=== PATIENT | male | born 1970 | race Caucasian/White ===

== ENCOUNTER 2017-07-11 18:50 | Emergency (ER) | payer OTHER ==
[2017-07-11] MEDS ORDERED: Sodium Chloride 0.9% 1,000 ML IV ONE (19:24)
[2017-07-11] MEDS ORDERED: Ondansetron 4 MG/2 ML SDV IVPUSH ONE (19:24)
[2017-07-11] MEDS ORDERED: Metoclopramide 10 MG/2 ML SDV IV ONE (19:24)
[2017-07-11] MEDS ORDERED: diphenhydrAMINE 50 MG/ML SDV IVPUSH ONE (19:26)
--- NOTE | 2017-07-11 19:31 | EDM.PDOC ---
ED HPI GENERAL MEDICAL PROBLEM - General Chief Complaint: Headache Stated Complaint: MIGRAINE Time Seen by Provider: 07/11/17 19:10 Source of Information: Reports: Patient History Limitations: Reports: No Limitations - History of Present Illness INITIAL COMMENTS - FREE TEXT/NARRATIVE: HISTORY AND PHYSICAL: History of present illness: [Patient comes to the emergency room complaining of a migraine headache that began last evening. He does have a history of migraine headaches with his most recent being 6-8 months ago while he was at home in [place]. The previous migraine headache was the first one he's ever had. He was able to see his primary care provider at that time who documented the headache. He reports an intolerance to aspirin and ibuprofen, and states that in the past he had to get morphine to relieve his symptoms. He states that today's headache feels just like his previous headache and is not any worse in intensity. He denies fever and chills. Has had no chest pain shortness of breath or difficulty breathing. No blurred vision or double vision. No eye pain. No earaches, runny nose or sore throat. No abdominal pain or vomiting. He has had some mild nausea on and off throughout today. He was treated one week ago for an upper respiratory infection with a Zithromax Z-Gordy which he completed 3 days ago. States that he was feeling well over the past several days since completing that medication. Rates his pain as 6 out of 10. He has not taken any medications for his symptoms.] Review of systems: As per history of present illness and below otherwise all systems reviewed and negative. Past medical history: As per history of present illness and as reviewed below otherwise noncontributory. Surgical history: As per history of present illness and as reviewed below otherwise noncontributory. Social history: No reported history of drug or alcohol abuse. Family history: As per history of present illness and as reviewed below otherwise noncontributory. Physical exam: HEENT: Atraumatic, normocephalic. PERRLA. EOMI. Oral mucous membranes are pink and moist. Ecchymosis surrounding left orbit from prior trauma. Lungs: Clear to auscultation, breath sounds equal bilaterally. Heart: S1S2, regular rate and rhythm. Pelvis: Stable nontender. Genitourinary: Deferred. Rectal: Deferred. Extremities: Atraumatic in appearance. Neurovascular unremarkable. Neuro: Awake, alert, oriented. Motor and sensory unremarkable throughout. Exam nonfocal. Therapeutics: [1 L normal saline, Benadryl 50 mg IV, Reglan 10 mg IV, Zofran 4 mg IV, morphine 2 mg IV] Impression: [Headache] Plan: [Patient admits to slight improvement following Benadryl, Reglan and Zofran. Now rates his headache as 5 out of 10. Morphine 2 mg given IV. Patient discharged to home. ] Definitive disposition and diagnosis as appropriate pending reevaluation and review of above. Headache Pain Score (Numeric/FACES): 7 - Related Data Allergies Allergy/AdvReac Type Severity Reaction Status Date / Time aspirin Allergy Anaphylactic Verified 07/11/17 19:07 Shock ibuprofen Allergy Anaphylactic Verified 07/11/17 19:07 Shock Home Meds: Home Meds Albuterol [IJD: Albuterol HFA] 2 puff INH DAILY PRN 07/11/17 [History] Fluticasone/Salmeterol [Advair Hfa 230-21 Mcg Inhaler] 1 puff INH DAILY [History] Omeprazole 20 mg PO DAILY 07/11/17 [History] Past Medical History - Past Health History Medical/Surgical History: Denies Medical/Surgical History HEENT History: Reports: None Respiratory History: Reports: Asthma Gastrointestinal History: Reports: GERD Neurological History: Reports: Migraines - Infectious Disease History Infectious Disease History: Reports: Chicken Pox - Past Surgical History HEENT Surgical History: Reports: Polypectomy GI Surgical History: Reports: None Neurological Surgical History: Reports: None Social & Family History - Family History Family Medical History: Noncontributory - Tobacco Use Smoking Status *Q: Former Smoker Used Tobacco, but Quit: Yes Month Tobacco Last Used: "3years ago" - Caffeine Use Caffeine Use: Reports: Coffee, Energy Drinks, Soda - Recreational Drug Use Recreational Drug Use: No ED ROS GENERAL - Review of Systems Review Of Systems: ROS reveals no pertinent complaints other than HPI. - Physical Exam Exam: See Below Course - Vital Signs Last Recorded V/S: Last Vital Signs Temp 97.9 F 07/11/17 19:04 Pulse 70 07/11/17 19:04 Resp 18 07/11/17 19:04 BP 133/84 07/11/17 19:04 Pulse Ox 96 07/11/17 19:04 - Orders/Labs/Meds Orders: Active Orders 24 hr Category Date Time Status HEPATITIS B SURFACE ANTIGEN [REF] Stat Lab 07/11/17 21:35 Received HEPATITIS C AB [REF] Stat Lab 07/11/17 21:35 Received HIV12 AG/AB 4TH GEN W/REFLEX [CHEM] Stat Lab 07/11/17 21:35 Received Meds: Medications Discontinued Medications Generic Name Dose Route Start Last Admin Trade Name Efraínq PRN Reason Stop Dose Admin Diphenhydramine HCl 50 mg 07/11/17 19:26 07/11/17 20:02 Benadryl IVPUSH 07/11/17 19:27 50 mg ONETIME ONE Administration Sodium Chloride 1,000 mls @ 999 mls/hr 07/11/17 19:24 07/11/17 20:01 Normal Saline IV 07/11/17 20:24 999 mls/hr STAT ONE Administration Metoclopramide HCl 10 mg 07/11/17 19:24 07/11/17 20:02 Reglan IV 07/11/17 19:25 10 mg ONETIME ONE Administration Morphine Sulfate 2 mg 07/11/17 21:51 07/11/17 21:58 Morphine IVPUSH 07/11/17 21:52 2 mg ONETIME ONE Administration Ondansetron HCl 4 mg 07/11/17 19:24 07/11/17 20:02 Zofran IVPUSH 07/11/17 19:25 4 mg ONETIME ONE Administration Departure - Departure Time of Disposition: 22:15 Disposition: Home, Self-Care 01 Condition: Good Clinical Impression: Headache - Discharge Information Referrals: PCP,None [Primary Care Provider] - Forms: ED Department Discharge Additional Instructions: The following information is given to patients seen in the emergency department who are being discharged to home. This information is to outline your options for follow-up care. We provide all patients seen in our emergency department with a follow-up referral. The need for follow-up, as well as the timing and circumstances, are variable depending upon the specifics of your emergency department visit. If you don't have a primary care physician on staff, we will provide you with a referral. We always advise you to contact your personal physician following an emergency department visit to inform them of the circumstance of the visit and for follow-up with them and/or the need for any referrals to a consulting specialist. The emergency department will also refer you to a specialist when appropriate. This referral assures that you have the opportunity for follow-up care with a specialist. All of these measure are taken in an effort to provide you with optimal care, which includes your follow-up. Under all circumstances we always encourage you to contact your private physician who remains a resource for coordinating your care. When calling for follow-up care, please make the office aware that this follow-up is from your recent emergency room visit. If for any reason you are refused follow-up, please contact the [facility] emergency department at and asked to speak to the emergency department charge nurse. [facility] [address] [place] [id number] Establish care with a local primary care provider and follow-up there in the next 2-3 days. Return to ER as needed as discussed. - My Orders Last 24 Hours: My Active Orders 07/11/17 21:35 HEPATITIS B SURFACE ANTIGEN [REF] Stat HEPATITIS C AB [REF] Stat HIV12 AG/AB 4TH GEN W/REFLEX [CHEM] Stat - Assessment/Plan Last 24 Hours: My Active Orders 07/11/17 21:35 HEPATITIS B SURFACE ANTIGEN [REF] Stat HEPATITIS C AB [REF] Stat HIV12 AG/AB 4TH GEN W/REFLEX [CHEM] Stat
[2017-07-11] MEDS ORDERED: Morphine 2 MG/ML Syringe IVPUSH ONE (21:51)
== END 2017-07-11 22:30 | disposition home or self-care (01) ==
LOC: MW.ED 18:50
DX: R51 Headache (principal); Z88.6 Allergy status to analgesic agent; Z87.891 Personal history of nicotine dependence
CPT/HCPCS: 86803; 87340; 87389; 96361; 96374; 96375; 99284; J1200; J2270; J2405; J2765; J7040; 36415

== ENCOUNTER 2019-07-07 08:09 | Emergency (ER) | payer OTHER ==
[2019-07-07] MEDS ORDERED: Sodium Chloride 0.9% 500 ML IV ONE (08:23)
[2019-07-07] MEDS ORDERED: Ondansetron 4 MG/2 ML SDV IVPUSH ONE (08:23)
[2019-07-07] MEDS ORDERED: diphenhydrAMINE 50 MG/ML SDV IVPUSH ONE (08:24)
--- NOTE | 2019-07-07 08:52 | EDM.PDOC ---
ED HPI GENERAL MEDICAL PROBLEM - General Chief Complaint: Headache Stated Complaint: SEVERE MIGRAINE Time Seen by Provider: 07/07/19 08:45 - History of Present Illness INITIAL COMMENTS - FREE TEXT/NARRATIVE: HISTORY AND PHYSICAL: History of present illness: []48-year-old male presenting today with 3 days of worsening migraine; mention having multiple episodes in the past 4 years 1 every year; last episode 2 years ago. States over the course of 3 days he is having increasing pressure in his forehead and the right-sided stays with increasing lacrimation of his right eye. Denies any fevers, chills, body aches, chest pain, shortness of breath. Denies any preceding symptoms including changes in vision, floaters, and/or aura. Frank endorse sensitivity to light predominantly in the right eye greater than left eye Does mention having nausea without any vomiting. Denies any other focal deficits as been using [id number] Tylenol with partial pain relief; took 4 Tylenol this morning prior to arriving to the ED. Review of systems: As per history of present illness and below otherwise all systems reviewed and negative. Past medical history: As per history of present illness and as reviewed below otherwise noncontributory. Surgical history: As per history of present illness and as reviewed below otherwise noncontributory. Social history: No reported history of drug or alcohol abuse. Family history: As per history of present illness and as reviewed below otherwise noncontributory. Physical exam: HEENT: Atraumatic, normocephalic, pupils reactive, negative for conjunctival pallor or scleral icterus, mucous membranes moist, throat clear, neck supple, nontender, trachea midline. Lungs: Clear to auscultation, breath sounds equal bilaterally, chest nontender. Heart: S1S2, regular, negative for clicks, rubs, or JVD. Abdomen: Soft, nondistended, nontender. Negative for masses or hepatosplenomegaly. Negative for costovertebral tenderness. Pelvis: Stable nontender. Genitourinary: Deferred. Rectal: Deferred. Extremities: Atraumatic, negative for cords or calf pain. Neurovascular unremarkable. Neuro: Awake, alert, oriented. Cranial nerves II through XII unremarkable. Cerebellum unremarkable. Motor and sensory unremarkable throughout. Exam nonfocal. symmetric smile. Appropriate pupillary reflex with consensual reflex. 5 out of 5 in upper and lower extremities. Sensation of face intact. No cranial nerve deficits Diagnostics: [] Therapeutics: []Tordol 30 IV Zofran 8 mg IV Reglan 10 Impression: []Migraine : improving Plan: []discharge w/ Fiorocet Close follow up with PCP and possibly neurology Advised to return if symptoms worsen or are prolonged Definitive disposition and diagnosis as appropriate pending reevaluation and review of above. patient improved with above therapy; discharged in stable condition headache Pain Score (Numeric/FACES): 10 - Related Data Allergies Allergy/AdvReac Type Severity Reaction Status Date / Time aspirin Allergy Anaphylactic Verified 07/07/19 08:11 Shock ibuprofen Allergy Anaphylactic Verified 07/07/19 08:11 Shock Home Meds: Home Meds Fexofenadine HCl [Uma Allergy] 60 mg PO DAILY 07/13/15 [History] Ipratropium [Atrovent] 1 ampule INH ASDIRECTED PRN 07/13/15 [History] Omeprazole [Prilosec] 20 mg PO DAILY 07/13/15 [History] Albuterol Sulfate [Proair Respiclick] 2 puff INH ASDIRECTED PRN #1 [email or web address] [Rx] Albuterol [IJD: Albuterol HFA] 2 puff INH DAILY PRN 07/11/17 [History] Fluticasone/Salmeterol [Advair Hfa 230-21 Mcg Inhaler] 1 puff INH DAILY [History] Acetaminophen/Butalbital/Caff [Fioricet 325-50-40 MG] 1 each PO Q6HR PRN 2 Days #8 tab 07/07/19 [Rx] Past Medical History - Past Health History Medical/Surgical History: Denies Medical/Surgical History HEENT History: Reports: None Other HEENT History: nasal polyps with nasal surgery Cardiovascular History: Reports: None Respiratory History: Reports: Asthma Gastrointestinal History: Reports: GERD Other Gastrointestinal History: polyps Genitourinary History: Reports: None Musculoskeletal History: Reports: None Neurological History: Reports: Migraines Psychiatric History: Reports: None Endocrine/Metabolic History: Reports: None Hematologic History: Reports: None Immunologic History: Reports: None Dermatologic History: Reports: None - Infectious Disease History Infectious Disease History: Reports: Chicken Pox - Past Surgical History Head Surgeries/Procedures: Reports: None HEENT Surgical History: Reports: Polypectomy Cardiovascular Surgical History: Reports: None Respiratory Surgical History: Reports: None GI Surgical History: Reports: None Male Surgical History: Reports: None Endocrine Surgical History: Reports: None Neurological Surgical History: Reports: None Musculoskeletal Surgical History: Reports: None Oncologic Surgical History: Reports: None Dermatological Surgical History: Reports: None Social & Family History - Family History Family Medical History: Noncontributory - Tobacco Use Smoking Status *Q: Current Some Day Smoker Years of Tobacco use: 28 Packs/Tins Daily: 0.1 - Caffeine Use Caffeine Use: Reports: Coffee, Energy Drinks, Soda, Tea - Recreational Drug Use Recreational Drug Use: No ED ROS GENERAL - Review of Systems Review Of Systems: ROS reveals no pertinent complaints other than HPI. - Physical Exam Exam: See Below (see dictation) Course - Vital Signs Last Recorded V/S: Last Vital Signs Temp 95.9 F 07/07/19 08:10 Pulse 76 07/07/19 08:10 Resp 18 07/07/19 08:10 BP 133/100 H 07/07/19 08:10 Pulse Ox 97 07/07/19 08:10 - Orders/Labs/Meds Meds: Medications Discontinued Medications Generic Name Dose Route Start Last Admin Trade Name Efraínq PRN Reason Stop Dose Admin Diphenhydramine HCl 50 mg 07/07/19 08:24 07/07/19 08:30 Benadryl IVPUSH 07/07/19 08:25 50 mg ONETIME ONE Administration Sodium Chloride 500 mls @ 999 mls/hr 07/07/19 08:23 07/07/19 08:30 Normal Saline IV 07/07/19 08:53 999 mls/hr STAT ONE Administration Metoclopramide HCl 10 mg 07/07/19 09:03 07/07/19 09:09 Reglan IV 07/07/19 09:04 10 mg ONETIME ONE Administration Ondansetron HCl 8 mg 07/07/19 08:23 07/07/19 08:30 Zofran IVPUSH 07/07/19 08:24 8 mg ONETIME ONE Administration Departure - Departure Time of Disposition: 10:09 Disposition: Home, Self-Care 01 Clinical Impression: Migraine Qualifiers: Migraine type: without aura Status migrainosus presence: without status migrainosus Intractability: not intractable Qualified Code(s): G43.009 - Migraine without aura, not intractable, without status migrainosus - Discharge Information Prescriptions: Acetaminophen/Butalbital/Caff [Fioricet 325-50-40 MG] 1 each PO Q6HR PRN 2 Days #8 tab PRN Reason: Headache Instructions: Migraine Headache, [id number] Referrals: PCP,None [Primary Care Provider] - Forms: ED Department Discharge Additional Instructions: Patient advised to return to ED if symptoms worsens despite taking medications prescribed. Advised to follo-up with primary care provider within 1-week to discuss long - term treatment Changes in vision or other neurological symptoms require prompt follow up The following information is given to patients seen in the emergency department who are being discharged to home. This information is to outline your options for follow-up care. We provide all patients seen in our emergency department with a follow-up referral. The need for follow-up, as well as the timing and circumstances, are variable depending upon the specifics of your emergency department visit. If you don't have a primary care physician on staff, we will provide you with a referral. We always advise you to contact your personal physician following an emergency department visit to inform them of the circumstance of the visit and for follow-up with them and/or the need for any referrals to a consulting specialist. The emergency department will also refer you to a specialist when appropriate. This referral assures that you have the opportunity for follow-up care with a specialist. All of these measure are taken in an effort to provide you with optimal care, which includes your follow-up. Under all circumstances we always encourage you to contact your private physician who remains a resource for coordinating your care. When calling for follow-up care, please make the office aware that this follow-up is from your recent emergency room visit. If for any reason you are refused follow-up, please contact the [facility] Emergency Department at and asked to speak to the emergency department charge nurse.
[2019-07-07] MEDS ORDERED: Metoclopramide 10 MG/2 ML SDV IV ONE (09:03)
== END 2019-07-07 10:30 | disposition home or self-care (01) ==
LOC: MW.ED 08:09
DX: G43.009 Migraine without aura, not intractable, without status migrainosus (principal); J45.909 Unspecified asthma, uncomplicated; K21.9 Gastro-esophageal reflux disease without esophagitis; F17.210 Nicotine dependence, cigarettes, uncomplicated; Z88.6 Allergy status to analgesic agent; Z79.899 Other long term (current) drug therapy
CPT/HCPCS: 96361; 96374; 96375; 99283; J1200; J2405; J2765; J7040